=== PATIENT | male | born 1975 | race Caucasian/White ===

== ENCOUNTER 2018-03-09 07:37 | Emergency (ER) | payer BC ==
[~2018-03-09] VITALS: Ht 170.2 cm; Wt 79.4 kg
--- NOTE | 2018-03-09 07:44 | NUR ---
[facility]. Per EMT [facility] requested they transport the patient as they happened to be on scene. Pt ambulatory on scene per report.
--- NOTE | 2018-03-09 07:46 | NUR ---
Dr. Perera at bedside for [facility]SE.
[2018-03-09] MEDS ORDERED: IBUPROFEN 800 MG TABLET PO ONE (09:00)
[2018-03-09] MEDS ORDERED: IBUPROFEN 800 MG TABLET ONE (09:07)
[2018-03-09 09:11] VITALS: BP 118/87
--- NOTE | 2018-03-09 09:20 | NUR ---
Pt discharge instructions provided. Pt awaiting for ride home at this time.
--- NOTE | 2018-03-09 09:45 | NUR ---
Patient discharged to home in stable conditon. Written and verbal after care instructions given. Patient verbalizes understanding of instructions.
== END 2018-03-09 09:45 | disposition home or self-care (01) ==
LOC: ER 07:37
DX: S06.0X9A Concussion with loss of consciousness of unspecified duration, initial encounter (principal); M54.2 Cervicalgia; M79.661 Pain in right lower leg; V47.5XXA Car driver injured in collision with fixed or stationary object in traffic accident, initial encounter; Y93.89 Activity, other specified; Y92.410 Unspecified street and highway as the place of occurrence of the external cause; Y99.8 Other external cause status
CPT/HCPCS: 70450; 72125; 73590; 73630; A4663